=== PATIENT | female | born 2000 | race American Indian/Alaskan Native ===

== ENCOUNTER 2021-08-28 00:48 | Emergency (ER) | payer SELFPAY ==
[2021-08-28 02:00] VITALS: BP 120/81
== END 2021-08-28 04:11 | disposition left against medical advice (07) ==
LOC: ED 00:48
DX: R51.9 Headache, unspecified (principal); R50.9 Fever, unspecified; Z53.21 Procedure and treatment not carried out due to patient leaving prior to being seen by health care provider